=== PATIENT | female | born 1960 | race Caucasian/White ===

== ENCOUNTER 2020-08-03 06:57 | Inpatient (IN) | payer BC ==
[2020-07-27 16:28] LABS: BASOPHILS # (AUTO) 0.1 X10'3 (0-0.2); BASOPHILS % (AUTO) 0.8 % (0-1); EOSINOPHILS # (AUTO) 0.3 X10'3 (0-0.9); EOSINOPHILS % (AUTO) 2.7 % (0-6); LYMPHOCYTES # (AUTO) 3.4 X10'3 (1.1-4.8); LYMPHOCYTES % (AUTO) 29.5 % (21-51); MEAN CORPUSCULAR HEMOGLOBIN 32.8 PG (27.0-31.0); MEAN CORPUSCULAR VOLUME 96.6 FL (78-98); MEAN PLATELET VOLUME 7.9 FL (7.4-10.4); MONOCYTES # (AUTO) 0.9 X10'3 (0-0.9); MONOCYTES % (AUTO) 7.6 % (2-12); NEUTROPHILS # (AUTO) 6.8 X10'3 (1.8-7.7); NEUTROPHILS % (AUTO) 59.4 % (42-75); PRE OP HEMATOCRIT 39.7 % (35.0-45.0); PRE OP HEMOGLOBIN 13.5 g/dL (12.0-16.0); PRE OP PLATELET COUNT 392 X10'3 (140-440); RED BLOOD COUNT 4.11 X10'6 (4.20-5.60); RED CELL DISTRIBUTION WIDTH 12.4 % (11.5-14.5)
[2020-07-27 16:32] LABS: ALBUMIN 3.9 G/DL (3.4-5.0); ALBUMIN/GLOBULIN RATIO 0.9 (1.1-1.5); ALKALINE PHOSPHATASE 155 IU/L (46-116); BLOOD UREA NITROGEN 15 MG/DL (7-18); BUN/CREATININE RATIO 19.2 (6.6-38.0); CALCIUM 9.3 MG/DL (8.5-10.1); CHLORIDE 99 MMOL/L (99-107); CREATININE 0.78 MG/DL (0.40-0.90); PRE OP ALT 25 U/L (30-65); PRE OP ANION GAP 8 (8-16); PRE OP AST 21 U/L (10-37); PRE OP BILIRUB, TOTAL 0.2 MG/DL (0.0-1.0); PRE OP GLUCOSE 89 MG/DL (70-104); PRE OP POTASSIUM 4.5 MMOL/L (3.4-5.1); PRE OP SODIUM 136 MMOL/L (135-145); TOTAL CARBON DIOXIDE 28.8 MMOL/L (24-32); TOTAL PROTEIN 8.1 G/DL (6.4-8.2); eGFR 76 ML/MIN
[2020-08-03] VITALS (17 sets, daily range): BP systolic 108–144; BP diastolic 49–74
[~2020-08-03] VITALS: Ht 165.1 cm; Wt 73.9 kg
[~2020-08-03 06:57] MED LIST: FLUO40CA PO; LIDOcaine 1% (10mg/ml) 2ml vial ONE; ROPIVAcaine 0.5% (5mg/ml) 30ml vial ONE; ceFAZolin 2gm in dextrose, iso 50 ML IV ONE; ceFAZolin/D5W- 1GM premix 50 ML IV ONE; famotidine 20mg tablet PO ONE; ketorolac trometh. 30mg/ml inj. ONE; ringers solution, lacted 1,000 ML IV SCH; tranexamic acid inj. 1,000 MG in normal saline 100 ML IV ONE; vancomycin 1,500 MG in NS 300ml IV soln IV ONE
[2020-08-03] MEDS ORDERED: tranexamic acid inj. 700 MG in normal saline 100ml IV soln 100 ML IV ONE ×2 (07:05→08:30)
[2020-08-03] MEDS ORDERED: neostigmine methylsulfate 1 MG/ML 10ml vial ONE (08:46)
[2020-08-03] MEDS ORDERED: glycopyrrolate 0.2mg/ml inj ONE (08:46)
[2020-08-03] MEDS ORDERED: sevoflurane 250ml liquid IH ONE (08:46)
[2020-08-03] MEDS ORDERED: fentaNYL/PF 50MCG/1 ML 2ML syringe ONE (08:51)
[2020-08-03] MEDS ORDERED: ondansetron/PF 4mg/2ml inj ONE (09:23)
[2020-08-03] MEDS ORDERED: rocuronium 10mg/ml inj IV ONE (09:23)
[2020-08-03] MEDS ORDERED: dexamethasone sod phosphate 4mg/ml inj. ONE (09:23)
[2020-08-03] MEDS ORDERED: ROPIVAcaine 0.5% (5mg/ml) 30ml vial ONE (09:23)
[2020-08-03] MEDS ORDERED: propofol inj 20 ML IV ONE (09:23)
[2020-08-03] MEDS ORDERED: LIDOcaine 2% (20mg/ml) 5ml vial ONE (09:23)
[2020-08-03] MEDS ORDERED: midazolam 2 mg/2 ml injection ONE (09:23)
[2020-08-03] MEDS ORDERED: morphine 2 MG/ML inj. syringe IV PRN (09:45)
[2020-08-03] MEDS ORDERED: ringers solution, lacted 1,000 ML IV SCH (09:45)
[2020-08-03] MEDS ORDERED: ondansetron/PF 4mg/2ml inj IV PRN ×2 (09:45→11:15)
[2020-08-03] MEDS ORDERED: acetaminophen 1,000mg/100ml IV 100 ML IV PRN (09:45)
[2020-08-03] MEDS ORDERED: morphine 4 MG/ML inj SYRINge IV PRN (09:45)
[2020-08-03] MEDS ORDERED: proCHLORperazine 10 MG/2 ml inj IV PRN (09:45)
[2020-08-03] MEDS ORDERED: ROPIVAcaine 0.2% (10 MG/5 ML) BOLUS INJECTION INTERSCALE PRN (09:45)
[2020-08-03] MEDS ORDERED: labetalol 20mg/4ml (5mg/ml) syringe IV PRN (09:45)
[2020-08-03] MEDS ORDERED: HYDROmorphone/PF 0.2 MG/ML SYRINGE IV PRN ×2 (09:45)
[2020-08-03] MEDS ORDERED: hydrALAZINE 20mg/ml inj. IV PRN (09:45)
[2020-08-03] MEDS ORDERED: 0.9 % SODIUM CHLORIDE 10 ML VIAL ONE ×2 (09:53→10:47)
[2020-08-03] MEDS ORDERED: ePHEDrine 50MG/ML INJ. ONE ×2 (09:53→10:47)
--- NOTE | 2020-08-03 10:58 | NUR ---
Received from OR via , accompanied by Anesthesiologist DR CARUSO and report given by Anesthesiolgist. AWAKENS TO VOICE. VITALS STABLE. DRESSING DI. MAGEN PAIN. FINGERS WARM AND PINK. RUE IN A SIMPLE SLING.
[2020-08-03] MEDS ORDERED: HYDROmorphone 1 mg/ml syringe IV PRN (11:15)
[2020-08-03] MEDS: potassium cl 20mEq in 1/2 NS 1,000 ML IV SCH ×2 (11:15→21:46)
[2020-08-03] MEDS ORDERED: acetaminophen 325mg tablet PO PRN (11:15)
[2020-08-03] MEDS ORDERED: diphenhydrAMINE 25mg capsule PO PRN ×2 (11:15)
[2020-08-03] MEDS ORDERED: HYDROmorphone inj. 0.5 MG/0.5 ML DISP.SYRIN IV PRN (11:15)
[2020-08-03] MEDS ORDERED: magnesium hydroxide 30ml (MOM) UD suspension PO PRN (11:15)
[2020-08-03] MEDS ORDERED: bisacodyl 10mg suppository rectal RC PRN (11:15)
[2020-08-03] MEDS ORDERED: oxyCODONE IR 5mg (immed. release) tablet PO PRN (11:15)
[2020-08-03] MEDS: ROPIVAcaine 0.2%/PF PUMP/bolus 550 ML INTERSCALE SCH (11:16)
--- NOTE | 2020-08-03 11:58 | NUR ---
Report called to receiving nurse. Transferred via BED Belongings . Special Issues communicated to receiving nurse. AWAKE AND ORIENTED. VITALS STABLE. DRESSING DI. MAGEN PAIN. TO ORTHO RM [id number] AT THIS TIME.
[2020-08-03] MEDS ORDERED: NORMAL SALINE IV ONE (14:30)
[2020-08-03] MEDS ORDERED: TRANEXAMIC ACID IV ONE (14:30)
[2020-08-03] MEDS: ceFAZolin 2gm in dextrose, iso 50 ML IV SCH (15:46)
[2020-08-03] MEDS: acetaminophen 325mg tablet PO SCH ×2 (15:46→20:53)
[2020-08-03] MEDS: oxyCODONE IR 5mg (immed. release) tablet PO PRN ×2 (17:05→22:57)
--- NOTE | 2020-08-03 18:39 | NUR ---
Patient in room ORTHO 4015. I have received report from Malathi GOLD and had the opportunity to ask questions and assume patient care.
[2020-08-03] MEDS ORDERED: vancomycin/NS 1 GM ADD-VANTAGE 250 ML IV SCH (20:00)
[2020-08-03] MEDS ORDERED: sennosides 8.6mg tablet PO SCH (21:00)
[2020-08-04] MEDS: ceFAZolin 2gm in dextrose, iso 50 ML IV SCH (00:03)
[2020-08-04] MEDS: acetaminophen 325mg tablet PO SCH ×2 (01:56→08:41)
[2020-08-04 02:00] VITALS: BP 139/57
[2020-08-04] MEDS: oxyCODONE IR 5mg (immed. release) tablet PO PRN (03:10)
[2020-08-04] MEDS: potassium cl 20mEq in 1/2 NS 1,000 ML IV SCH ×2 (03:15→11:15)
--- NOTE | 2020-08-04 06:16 | NUR ---
Problems reprioritized. Patient report given, questions answered & plan of care reviewed with Malathi GOLD.
[2020-08-04 06:42] VITALS: BP 148/78
[2020-08-04 07:04] LABS: BASOPHILS # (AUTO) 0.1 X10'3 (0-0.2); BASOPHILS % (AUTO) 0.4 % (0-1); EOSINOPHILS % (AUTO) 0.2 % (0-6); HEMATOCRIT 35.1 % (35.0-45.0); LYMPHOCYTES # (AUTO) 3.3 X10'3 (1.1-4.8); MEAN CORPUSCULAR HEMOGLOBIN 32.7 PG (27.0-31.0); MEAN CORPUSCULAR HGB CONC 34.3 g/dL (33.0-36.5); MEAN CORPUSCULAR VOLUME 95.5 FL (78-98); MEAN PLATELET VOLUME 8.5 FL (7.4-10.4); MONOCYTES # (AUTO) 1.3 X10'3 (0-0.9); MONOCYTES % (AUTO) 7.5 % (2-12); NEUTROPHILS # (AUTO) 12.5 X10'3 (1.8-7.7); NEUTROPHILS % (AUTO) 72.9 % (42-75); PLATELET COUNT 300 X10'3 (140-440); RED BLOOD COUNT 3.67 X10'6 (4.20-5.60); RED CELL DISTRIBUTION WIDTH 12.1 % (11.5-14.5); WHITE BLOOD COUNT 17.2 X10'3 (4.5-11.0)
[2020-08-04 07:30] LABS: ANION GAP 11 (8-16); CHLORIDE 104 MMOL/L (99-107); POTASSIUM 3.9 MMOL/L (3.5-5.1); SODIUM 140 MMOL/L (135-145); TOTAL CARBON DIOXIDE 25.3 MMOL/L (24-32)
[2020-08-04] MEDS ORDERED: FLUoxetine 20mg capsule PO SCH (08:00)
[2020-08-04] MEDS ORDERED: aspirin 325mg tablet PO SCH (08:30)
[2020-08-04] MEDS ORDERED: ASPI-1 PO (09:49)
[2020-08-04] MEDS: ROPIVAcaine 0.2%/PF PUMP/bolus 550 ML INTERSCALE SCH (12:33)
[2020-08-05] MEDS ORDERED: acetaminophen 325mg tablet PO PRN (11:15)
== END 2020-08-04 13:23 | disposition home or self-care (01) | DRG 483 ==
LOC: UNDOADMIN 06:57 → PAS IN 06:57 → EDSTATUS 11:15 → ORTHO 4S 12:00 → EDSTATUS 12:00 → PAS IN 12:00
PROVIDERS: ADMIT Orthopaedic Surgery; ATTEND Orthopaedic Surgery
PROC: 0LS30ZZ Reposition Right Upper Arm Tendon, Open Approach (ICD-10-PCS; 2020-08-03)
PROC: 0DH63UZ Insertion of Feeding Device into Stomach, Percutaneous Approach (ICD-10-PCS; 2020-08-03)
PROC: 3E0T3BZ Introduction of Anesthetic Agent into Peripheral Nerves and Plexi, Percutaneous Approach (ICD-10-PCS; 2020-08-03)
PROC: 0RRJ0JZ Replacement of Right Shoulder Joint with Synthetic Substitute, Open Approach (ICD-10-PCS; principal; 2020-08-03 08:46)
DX: M19.011 Primary osteoarthritis, right shoulder (principal); G89.29 Other chronic pain; M65.9 Synovitis and tenosynovitis, unspecified; D64.9 Anemia, unspecified; Z79.899 Other long term (current) drug therapy
CPT/HCPCS: 36415; 80051; 80053; 82948; 85025; 87081; 87635; 94668; 97110; 97116; 97161; 97530; A4618; A7000; C1713; C1776; G0378; J0690; J1100; J1885; J2001; J2250; J2405; J2704; J2710; J2795; J3010; J3370; J3480; J3490; J7040; J7120